=== PATIENT | male | born 1970 | race African-American/Black ===

== ENCOUNTER 2017-07-10 23:28 | Emergency (ER) | payer BC, MEDICAID ==
[~2017-07-10] VITALS: Ht 185.4 cm; Wt 93.0 kg
[~2017-07-10 23:28] MED LIST: VIC
[2017-07-11] MEDS ORDERED: SODIUM CHLORIDE 0.9% 1,000 ML IV ONE (01:57)
[2017-07-11 02:27] LABS: BASOPHILS % 0.7 % (0.0-2.0); EOSINOPHILS % 0.2 % (0.0-5.0); HEMATOCRIT. 42.8 % (42.0-52.0); HEMOGLOBIN. 14.4 g/dL (14.0-18.0); LYMPHOCYTES % 13.2 % (20.0-50.0); MEAN CORPUSCULAR HEMOGLOBIN 32.3 pg (28.0-32.0); MEAN PLATELET VOLUME 7.7 fl (7.4-10.4); MONOCYTES % 6.3 % (2.0-8.0); NEUTROPHILS % 79.6 % (40.0-76.0); PLATELET 318 x1000/uL (130-400); RED BLOOD CELL COUNT 4.45 mill/uL (4.7-6.1); RED CELL DISTRIBUTION WIDTH 12.5 % (11.6-14.6)
[2017-07-11 02:32] LABS: INR 1.1; PROTHROMBIN TIME 11.5 sec (9.4-11.6)
[2017-07-11 02:36] LABS: CHLORIDE 106 mEq/L (98-107); ETHANOL BLOOD < 10 mg/dL
[2017-07-11 02:38] LABS: AMMONIA < 25 uMol/L (<32)
[2017-07-11 02:42] LABS: CREATINE KINASE 132 IU/L (39-308)
[2017-07-11] MEDS ORDERED: LABETALOL 5MG/ML SYR 20 MG/4 ML SYRINGE IV NR (04:00)
[2017-07-11 04:20] VITALS: BP 165/100
== END 2017-07-11 04:40 | disposition left against medical advice (07) ==
LOC: ER 23:39
DX: I10 Essential (primary) hypertension (principal); N20.0 Calculus of kidney; F10.20 Alcohol dependence, uncomplicated; R79.1 Abnormal coagulation profile
CPT/HCPCS: 36415; 70450; 71045; 74176; 80053; 80307; 80329; 82140; 82550; 83605; 83690; 84443; 84484; 85025; 85610; 93005; 99291; G0482; J7030; Z7610

== ENCOUNTER 2020-01-29 04:30 | Emergency (ER) | payer MEDICAID ==
[~2020-01-29] VITALS: Ht 2.5 cm; Wt 0.5 kg
[2020-01-29] MEDS ORDERED: SODIUM CHLORIDE 0.9% 1,000 ML IV ONE (09:00)
[2020-01-29] MEDS ORDERED: DIPHENHYDRAMINE 50MG/ML VIAL IM ONE (09:00)
[2020-01-29] MEDS ORDERED: PROCHLORPERAZINE 10MG/2ML VIAL IM ONE (09:00)
[2020-01-29] MEDS ORDERED: PROCHLORPERAZINE 10MG/2ML VIAL IM SCH (09:15)
[2020-01-29 12:15] VITALS: BP 138/76
== END 2020-01-29 12:15 | disposition home or self-care (01) ==
LOC: ER 04:30
DX: R51.9 Headache, unspecified (principal); R42 Dizziness and giddiness
CPT/HCPCS: 70450; 93005; 96372; 99284; J0780; J1200